=== PATIENT | female | born 1995 | race Caucasian/White ===

== ENCOUNTER → 2016-11-23 | Outpatient (CLI) | payer MEDICAID ==
[~2016-11-23] MED LIST: KEFLEX 500MG.500 MG PO; METHYLPREDNISONE4 MG PO; NUVARING1 ICR VG
--- NOTE | 2016-11-24 05:00 | RADIOLOGY REPORT PS360 ---
FOOT-LT-3 VIEWS HISTORY: 1 LT FOOT PAIN ORDERING PHYSICIAN: SONIA MOSS PATIENT AGE: 21 years COMPARISON: None FINDINGS: No fracture or dislocation. No lytic or blastic change. There is normal mineralization.. The joint spaces are well-preserved. No significant degenerative/arthritic changes. No erosive changes evident. IMPRESSION: Negative left foot, no acute finding
== END ==
LOC: RAD 08:46
DX: M79.672 Pain in left foot (principal)

== ENCOUNTER → 2016-11-24 | Outpatient (CLI) | payer MEDICAID ==
[2016-11-24 10:37] LABS: HEMOGLOBIN 13.5 g/dL (12.2-16.2); LYMPH % 29.3 % (10-50.0)
[2016-11-24 10:38] LABS: LYMPH # 2.3 K/mm3 (0.7-4.5)
[2016-11-24 11:20] LABS: BUN 12 mg/dL (7-18)
[2016-11-24 11:33] LABS: GFR (ESTIMATED) 70 ML/MIN (59-)
== END ==
LOC: LAB 09:15
PROVIDERS: Nurse Practitioner Family
DX: R53.83 Other fatigue (principal); M79.672 Pain in left foot; F41.9 Anxiety disorder, unspecified; Z79.899 Other long term (current) drug therapy